=== PATIENT | female | born 1995 | race Caucasian/White ===

== ENCOUNTER 2018-11-04 15:37 | Outpatient (CLI) | payer OTHER ==
--- NOTE | 2018-11-04 16:43 | RAD ---
CHEST TWO VIEWS: HISTORY: Bronchitis. COMPARISON: 11/12/2016 FINDINGS: Normal cardiac silhouette. Pulmonary vessels and hilum are normal. Costophrenic angles are clear. No masses or consolidation. No pneumothorax or osseous abnormalities. IMPRESSION: No acute cardiopulmonary process. POS: [facility]
== END 2018-11-04 15:38 | disposition home or self-care (01) ==
LOC: BICRAD 15:37
PROVIDERS: ATTEND Family Medicine
DX: J40 Bronchitis, not specified as acute or chronic (principal)
CPT/HCPCS: 71046